=== PATIENT | male | born 1970 | race Caucasian/White ===

== ENCOUNTER 2018-01-03 09:57 | Emergency (ER) | payer BC ==
[2018-01-03 10:31] VITALS: BP 142/95
[2018-01-03] MEDS ORDERED: Ibuprofen TAB* 400 MG PO ONE (11:24)
--- NOTE | 2018-01-03 11:47 | RAD ---
Indication: Left ankle pain. 3 views of left ankle demonstrates no fracture or dislocation. Ankle mortise is intact. IMPRESSION: NO FRACTURE OF THE LEFT ANKLE IS NOTED.
--- NOTE | 2018-01-03 11:49 | UC ---
Lower Extremity/Ankle HPI - HPI Summary HPI Summary: 47 year old male here with left ankle pain for one week. Works at [employer] but no recent physical activity. Sharp pain over the dorsum of the foot but no injuries. No numbness or tingling. - History of Current Complaint Chief Complaint: UCLowerExtremity Stated Complaint: ANKLE PAIN Time Seen by Provider: 01/03/18 11:18 Hx Obtained From: Patient Onset/Duration: Gradual Onset Severity Initially: Mild Pain Intensity: 5 Aggravating Factor(s): Standing, Ambulation Alleviating Factor(s): Rest - Risk Factors Gout Risk Factors: Negative - Allergies/Home Medications Allergies/Adverse Reactions: Allergies Allergy/AdvReac Type Severity Reaction Status Date / Time No Known Allergies Allergy Verified 01/03/18 10:28 PMH/Surg Hx/FS Hx/Imm Hx - Surgical History Surgical History: None - Family History Known Family History: Positive: None - Social History Alcohol Use: Weekly Substance Use Type: None Smoking Status (MU): Heavy Every Day Tobacco Smoker Type: Cigarettes Amount Used/How Often: 1ppd Household Exposure Type: Cigarettes Review of Systems Constitutional: Negative Skin: Negative Eyes: Negative ENT: Negative Respiratory: Negative Cardiovascular: Negative Gastrointestinal: Negative Genitourinary: Negative Motor: Negative Neurovascular: Negative Musculoskeletal: Other: - left ankle pain Neurological: Negative Psychological: Negative All Other Systems Reviewed And Are Negative: Yes Physical Exam Triage Information Reviewed: Yes Appearance: Well-Appearing, No Pain Distress Vital Signs: Initial Vital Signs Temp 36.8 C 01/03/18 10:28 Pulse 74 01/03/18 10:28 Resp 16 01/03/18 10:28 BP 142/95 01/03/18 10:28 Pulse Ox 99 01/03/18 10:28 Vital Signs Reviewed: Yes Eye Exam: Normal ENT Exam: Normal Musculoskeletal: Positive: Other: - left ankle with FROM No ttp over navicular bone Pain with hyperextension SILT in s/s/sp/dp/ta Neurological Exam: Normal Psychological Exam: Normal Skin Exam: Normal Diagnostics - Radiology No standard instances Xray Interpretation: No Acute Changes Radiology Interpretation Completed By: Radiologist Lower Extremity Course/Dx - Course Course Of Treatment: NSAID. Instructions for allevations - Differential Dx/Diagnosis Differential Diagnosis/HQI/PQRI: Arthritis, Sprain, Strain Provider Diagnoses: Left ankle pain Discharge - Discharge Plan Condition: Good Disposition: HOME Prescriptions: Ibuprofen TAB* [Motrin TAB* 400 MG] 400 mg PO Q6H PRN #20 tab PRN Reason: Pain Referrals: No Primary Care Phys,NOPCP [Primary Care Provider] -
== END 2018-01-03 12:09 | disposition home or self-care (01) ==
LOC: UCEAST 09:57
DX: M25.572 Pain in left ankle and joints of left foot (principal); F17.210 Nicotine dependence, cigarettes, uncomplicated
CPT/HCPCS: 99202; A9270-GY; G0463